=== PATIENT | female | born 1980 | race Caucasian/White ===

== ENCOUNTER 2019-04-28 17:12 | Emergency (ER) | payer MEDICAID ==
[2019-04-28] MEDS ORDERED: Ketorolac 30 MG/ML SDV IVPUSH ONE (17:35)
--- NOTE | 2019-04-28 17:41 | EDM.PDOC ---
ED HPI GENERAL MEDICAL PROBLEM - General Chief Complaint: Abdominal Pain Stated Complaint: ABDOMINAL PAIN Time Seen by Provider: 04/28/19 17:30 Source of Information: Reports: Patient History Limitations: Reports: No Limitations - History of Present Illness INITIAL COMMENTS - FREE TEXT/NARRATIVE: This patient presents to the ED for evaluation of abdominal pain. She states that her "bowel is closed off" and that is what is causing her pain. She states the pain started 3 months ago and is nearly everyday and worse after eating. She states she has to use a basketball or a child to push on her abdomen to pass stool and then the stool "is black diarrhea." She was seen in the clinic last week for the same concern and had lab work done that revealed a mild elevation in her WBC without a left shift. She was started on Cipro for "an infection" but the patient does not know what kind of infection. She was also started on Protonix after that visit. She states she has been vomiting today and has had more than 5 episodes, the last 90" [employer]. Her last urine output was this morning at about 10:30 am. She has not had a fever. She has been eating and drinking despite the abdominal pain until today when she has not had any solid foods but has been drinking fluids. She has a history of HTN, chronic pain , and asthma. She states that she had a "twisted bowel" with each and had a bowel surgery when she had her last . She is unable to say specifically what she had or what type of procedure was done. Onset: Other (more than 2 weeks) - Related Data Allergies Allergy/AdvReac Type Severity Reaction Status Date / Time cephalexin [From Keflex] Allergy Nausea and Verified 04/28/19 17:22 Vomiting erythromycin base Allergy Cannot Verified 04/28/19 17:22 Remember fluconazole [From Diflucan] Allergy Difficulty Verified 04/28/19 17:22 Breathing hydrocodone Allergy Itching Verified 04/28/19 17:22 quaternium Allergy Other Verified 04/28/19 17:22 Home Meds: Home Meds Acetaminophen [Tylenol Extra Strength] 1,000 mg PO TID PRN 05/27/18 [History] Albuterol [Ventolin HFA] 1 - 2 puff INH Q4HR PRN 05/27/18 [History] Clindamycin HCl 3 cap PO TID 05/27/18 [History] Diclofenac Sodium [Voltaren] 50 mg PO TID 05/27/18 [History] Gabapentin [Neurontin] 600 mg PO BID 05/27/18 [History] Ibuprofen 800 mg PO TID PRN 05/27/18 [History] buPROPion HCl [Wellbutrin Xl] 150 mg PO DAILY 05/27/18 [History] ED ROS GENERAL - Review of Systems Review Of Systems: See Below ED EXAM, GI/ABD - Physical Exam Exam: See Below Course - Vital Signs Last Recorded V/S: Last Vital Signs Temp 36.4 C 04/28/19 17:17 Pulse 98 04/28/19 17:17 Resp 18 04/28/19 17:17 BP 1498/80 H 04/28/19 17:17 Pulse Ox - Orders/Labs/Meds Orders: Active Orders 24 hr Category Date Time Status Abdomen Pelvis w Cont [CT] Stat Exams 04/28/19 17:35 Taken Sodium Chloride 0.9% [Normal Saline] 1,000 ml Med 04/28/19 17:45 Active IV ASDIRECTED Medication Orders Sodium Chloride (Normal Saline) 1,000 mls @ 1,000 mls/hr IV ASDIRECTED DONALD Last Admin: 04/28/19 18:33 Dose: 1,000 mls/hr Labs: Laboratory Tests 04/28/19 04/28/19 04/28/19 Range/Units 17:46 17:46 17:46 WBC (4.0-11.0) K/uL RBC (3.80-5.80) M/uL Hgb (11.5-16.5) g/dL Hct (37.0-47.0) % MCV (76-96) fL MCH (27.0-32.0) pg MCHC (31.0-35.0) g/dL RDW (11.0-16.0) % Plt Count (150-500) K/uL MPV (6.0-10.0) fL Neut % (Auto) (45.0-70.0) % Lymph % (Auto) (20.0-40.0) % [place] % (Auto) (3.0-10.0) % Eos % (Auto) (1.0-5.0) % Baso % (Auto) (0.0-0.5) % Neut # (Auto) (2.00-7.50) K/uL Lymph # (Auto) (1.50-4.00) K/uL [place] # (Auto) (0.20-0.80) K/uL Eos # (Auto) (0.04-0.40) K/uL Baso # (Auto) (0.02-0.10) K/uL Sodium 140 (136-145) mmol/L Potassium 4.7 D (3.5-5.1) mmol/L Chloride 101 (98-107) mmol/L Carbon Dioxide 25.6 (21.0-32.0) mmol/L Anion Gap 18.1 H (5.0-15.0) mmol/L BUN 27 H (8-26) mg/dL Creatinine 1.12 H (0.55-1.02) mg/dL Est Cr Clr Drug Dosing 66.88 mL/min Estimated GFR (MDRD) 55 L (>60) MLS/MIN BUN/Creatinine Ratio 24.1 (6-25) Glucose 89 (74-100) mg/dL Calcium 9.7 (8.5-10.1) mg/dL Urine Color Yellow Urine Appearance Clear (CLEAR) Urine pH 5.5 (5.0-8.0) Ur Specific [place] >= 1.030 (1.003-1.030) Urine Protein Trace H (NEGATIVE) mg/dL Urine Glucose (UA) Negative (NEGATIVE) mg/dL Urine Ketones Trace H (NEGATIVE) mg/dL Urine Occult Blood Negative (NEGATIVE) Urine Nitrite Negative (NEGATIVE) Urine Bilirubin Small H (NEGATIVE) Urine Urobilinogen 0.2 (0.2-1.0) E.U./dL Ur Leukocyte Esterase Negative (NEGATIVE) Urine RBC Not seen /HPF Urine WBC 0-5 H /HPF Ur Squamous Epith Cells Moderate /HPF Urine Bacteria Not seen /HPF Urine HCG, Qual Negative (NEGATIVE) 04/28/19 Range/Units 17:50 WBC 10.7 (4.0-11.0) K/uL RBC 5.27 (3.80-5.80) M/uL Hgb 15.3 (11.5-16.5) g/dL Hct 45.6 (37.0-47.0) % MCV 87 (76-96) fL MCH 29.0 (27.0-32.0) pg MCHC 33.6 (31.0-35.0) g/dL RDW 14.9 (11.0-16.0) % Plt Count 287 (150-500) K/uL MPV 12.2 H (6.0-10.0) fL Neut % (Auto) 64.9 (45.0-70.0) % Lymph % (Auto) 22.8 (20.0-40.0) % [place] % (Auto) 9.7 (3.0-10.0) % Eos % (Auto) 2.4 (1.0-5.0) % Baso % (Auto) 0.2 (0.0-0.5) % Neut # (Auto) 6.94 (2.00-7.50) K/uL Lymph # (Auto) 2.44 (1.50-4.00) K/uL [place] # (Auto) 1.04 H (0.20-0.80) K/uL Eos # (Auto) 0.26 (0.04-0.40) K/uL Baso # (Auto) 0.02 (0.02-0.10) K/uL Sodium (136-145) mmol/L Potassium (3.5-5.1) mmol/L Chloride (98-107) mmol/L Carbon Dioxide (21.0-32.0) mmol/L Anion Gap (5.0-15.0) mmol/L BUN (8-26) mg/dL Creatinine (0.55-1.02) mg/dL Est Cr Clr Drug Dosing mL/min Estimated GFR (MDRD) (>60) MLS/MIN BUN/Creatinine Ratio (6-25) Glucose (74-100) mg/dL Calcium (8.5-10.1) mg/dL Urine Color Urine Appearance (CLEAR) Urine pH (5.0-8.0) Ur Specific [place] (1.003-1.030) Urine Protein (NEGATIVE) mg/dL Urine Glucose (UA) (NEGATIVE) mg/dL Urine Ketones (NEGATIVE) mg/dL Urine Occult Blood (NEGATIVE) Urine Nitrite (NEGATIVE) Urine Bilirubin (NEGATIVE) Urine Urobilinogen (0.2-1.0) E.U./dL Ur Leukocyte Esterase (NEGATIVE) Urine RBC /HPF Urine WBC /HPF Ur Squamous Epith Cells /HPF Urine Bacteria /HPF Urine HCG, Qual (NEGATIVE) Meds: Medications Generic Name Dose Route Start Last Admin Trade Name Freq PRN Reason Stop Dose Admin Sodium Chloride 1,000 mls @ 1,000 mls/hr 04/28/19 17:45 04/28/19 18:33 Normal Saline IV 1,000 mls/hr ASDIRECTED DONALD Administration Discontinued Medications Generic Name Dose Route Start Last Admin Trade Name Freq PRN Reason Stop Dose Admin Ketorolac Tromethamine 30 mg 04/28/19 17:35 04/28/19 18:02 Toradol IVPUSH 04/28/19 17:36 30 mg Q6H ONE Administration - Re-Assessments/Exams Free Text/Narrative Re-Assessment/Exam: 04/28/19 19:30 This patient presents with abdominal pain as detailed above. A broad differential diagnosis was considered including appendicitis, gall bladder disease, pancreatitis, diverticular disease, bowel obstruction, volvulus, intussusception, gastritis and peptic ulcer disease, gastro intestinal infection , inflammatory bowel disease, peritonitis, kidney stones, UTI, related complications, PID and ovarian cyst, mesenteric lymphadenopathy, IBS. CT scan reveals mild periampullary duodenitis. Given her recent initiation of Protonix, no further medications are required at this time. Cardiac etiologies unlikely as supported by lack of chest pain, hemodynamic instability, or other cardiovascular concerns. At this time there is no indication for admission for serial exams and further workup. Patient remained hemodynamically stable in the ED. Plan is discharge to home and to continue Prontonix as well as her previously prescribed medications. Given her chronic use of opiods, no further opioid medications were prescribed. She should be seen in the clinic in 4-5 days if she is not better. She should return to the ED if she develops a fever greater than 102, increasing pain, other new symptoms develop. Abdominal pain instructions given to patient. Questions were answered. The patient was stable at the time of discharge. Departure - Departure Time of Disposition: 19:15 Disposition: Home, Self-Care 01 Condition: Good Clinical Impression: Duodenitis - Discharge Information Instructions: Peptic Ulcer, [id number] Referrals: PCP,None [Primary Care Provider] - Forms: ED Department Discharge, ED Return to Work/School Form Additional Instructions: Continue to take Protonix as ordered. Follow up in clinic or ER if not improved by middle of the week. - My Orders Last 24 Hours: My Active Orders 04/28/19 17:35 Abdomen Pelvis w Cont [CT] Stat 04/28/19 17:45 Sodium Chloride 0.9% [Normal Saline] 1,000 ml IV ASDIRECTED - Assessment/Plan Last 24 Hours: My Active Orders 04/28/19 17:35 Abdomen Pelvis w Cont [CT] Stat 04/28/19 17:45 Sodium Chloride 0.9% [Normal Saline] 1,000 ml IV ASDIRECTED
[2019-04-28] MEDS ORDERED: Sodium Chloride 0.9% 1,000 ML IV SCH (17:45)
--- NOTE | 2019-04-29 11:43 | CT ---
Date of Service: 04/28/19 Clinical Data: abdominal pain UNENHANCED ABDOMEN AND PELVIC CT: Multislice axial acquisition with IV, but without oral contrast was performed. No priors. The lung bases are clear. The liver is normal size. There is mild decreased attenuation of the liver adjacent to the falciform ligament consistent with focal fatty infiltration. No other focal hepatic lesions. The gallbladder appears normal. No biliary duct dilatation . The spleen appears normal. The pancreas is normal size. There is subtle fat stranding adjacent to the head of the pancreas, as well as adjacent to the duodenum. Duodenitis, pancreatitis should be considered. No evidence of abscess. The pancreas is otherwise unremarkable. The right and left adrenals appear normal. The right and left kidneys appear normal and enhance symmetrically. No hydronephrosis or hydroureter. The bladder is decompressed. No gross abnormalities. There are low density lesions in both ovaries consistent with bilateral ovarian cysts. The largest is within the right ovary and measures 4.3 cm in diameter. Followup ultrasound in 4 to 6 weeks is recommended to confirm resolution. The appendix is not dilated. No evidence of appendicitis. There is mild fat stranding of the mesentery in the region of the root of the mesentery. An infectious or inflammatory process should be considered. No free air. No free fluid. No dilated loops of bowel. No adenopathy. No aortic aneurysm or dissection. No other significant findings. [id number] [facility] [place] [facility]
== END 2019-04-28 19:17 | disposition home or self-care (01) ==
LOC: LB.ED 17:12
DX: K29.80 Duodenitis without bleeding (principal); Z88.1 Allergy status to other antibiotic agents; Z88.8 Allergy status to other drugs, medicaments and biological substances; Z79.899 Other long term (current) drug therapy; Z88.5 Allergy status to narcotic agent
CPT/HCPCS: 36415; 74177; 80048; 81001; 81025; 85025; 96361; 96374; 99284; J1885; J7030

== ENCOUNTER 2019-12-16 06:25 | Emergency (ER) | payer MEDICAID ==
[2019-12-16] MEDS ORDERED: EPINEPHrine 1 MG/ML SDV IM ONE (06:38)
[2019-12-16] MEDS ORDERED: diphenhydrAMINE 50 MG/ML SDV IVPUSH ONE (06:39)
[2019-12-16] MEDS ORDERED: methylPREDNISolone Sodium Succinate 125 MG/2 ML SDV IVPUSH ONE (06:39)
--- NOTE | 2019-12-16 07:11 | EDM.PDOC ---
ED HPI GENERAL MEDICAL PROBLEM - General Chief Complaint: Allergic Reaction Stated Complaint: ALLERGY REACTION Time Seen by Provider: 12/16/19 06:40 Source of Information: Reports: Patient History Limitations: Reports: No Limitations - History of Present Illness INITIAL COMMENTS - FREE TEXT/NARRATIVE: This patient presents to the ED for evaluation of hives. She states she started noticing the on 12/12 when she was at work. They started on her arms and have spread over the past 3 days and now include all skin surfaces. This morning she went to work and started feeling dizzy and having some trouble breathing. She also felt as though her tongue was swollen and decided to come in. she states she had one other allergic reaction when she was "working at the [employer]" but has not had one since then. 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 The grocery store has apparently started using a new product in this process and she believes this may have been what she had the reaction to. She does have a history of asthma. She has some lesions on her arms that she stated were hives that she scratched and now have a scabbed appearance. She states she cleaned them with alcohol and has been using an antifungal cream on them. She denies any recent illness including fever, cough, sore throat. 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) (zyrtec and janeth over the weekend "didn't help") Right Upper Arm Pain Score (Numeric/FACES): 5 - Related Data Allergies Allergy/AdvReac Type Severity Reaction Status Date / Time cephalexin [From Keflex] Allergy Nausea and Verified 04/28/19 17:22 Vomiting erythromycin base Allergy Cannot Verified 04/28/19 17:22 Remember fluconazole [From Diflucan] Allergy Difficulty Verified 04/28/19 17:22 Breathing hydrocodone Allergy Itching Verified 04/28/19 17:22 quaternium Allergy Other Verified 04/28/19 17:22 Home Meds: Home Meds Acetaminophen [Tylenol Extra Strength] 1,000 mg PO TID PRN 05/27/18 [History] Albuterol [Ventolin HFA] 1 - 2 puff INH Q4HR PRN 05/27/18 [History] Gabapentin [Neurontin] 600 mg PO BID 05/27/18 [History] Ibuprofen 800 mg PO TID PRN 05/27/18 [History] buPROPion HCL [Wellbutrin Xl] 150 mg PO DAILY 05/27/18 [History] ED ROS ALLERGIC REACTION - Review of Systems Review Of Systems: Comprehensive ROS is negative, except as noted in HPI. ED EXAM GENERAL NO PERIP PULSE - Physical Exam Exam: See Below Exam Limited By: No Limitations General Appearance: Alert, WD/WN, No Apparent Distress, Obese Eye Exam: Bilateral Eye: PERRL Ears: Normal External Exam Nose: Normal Inspection, Normal Mucosa Throat/Mouth: Normal Inspection, Dysphagia, Inflammation, Other (tongue mildly swollen, lips swollen) Respiratory/Chest: No Respiratory Distress, Lungs Clear, Normal Breath Sounds, No Accessory Muscle Use. No: Wheezing Cardiovascular: Regular Rate, Rhythm Extremities: Normal Inspection, Pedal Edema (non-pitting) Neurological: Alert, Oriented Psychiatric: Normal Affect Skin Exam: Warm, Dry, Intact, Rash (erythematous wheal and flare lesions on all skin surfaces except palms and face), Other Course - Vital Signs Last Recorded V/S: Last Vital Signs Temp 36.7 C 12/16/19 06:45 Pulse 70 12/16/19 07:12 Resp 20 12/16/19 06:45 BP 145/91 H 12/16/19 07:12 Pulse Ox 100 12/16/19 06:45 - Orders/Labs/Meds Meds: Medications Discontinued Medications Generic Name Dose Route Start Last Admin Trade Name Freq PRN Reason Stop Dose Admin Diphenhydramine HCl 50 mg 12/16/19 06:39 12/16/19 06:47 Benadryl IVPUSH 12/16/19 06:40 50 mg ONETIME ONE Administration Epinephrine HCl 0.3 mg 12/16/19 06:38 12/16/19 06:35 Adrenalin IM 12/16/19 06:39 0.3 mg ONETIME ONE Administration Methylprednisolone Sodium Succinate 125 mg 12/16/19 06:39 12/16/19 06:47 Solu-Medrol IVPUSH 12/16/19 06:40 125 mg ONETIME ONE Administration - Re-Assessments/Exams Free Text/Narrative Re-Assessment/Exam: 12/16/19 07:49 This patient presents for evaluation of an allergic reaction. Signs and symptoms are consistent with anaphylaxis. They look well at discharge and symptoms have stabilized and improved. We did watch here for 90 minutes prior to considering discharge; given the onset of her symptoms was 3 days prior and she has responded so well I did not feel as though continued observation was necessary. Patient was treated here with medications as noted above. Will send home with epipen, steroids, antihistamines, and topical hydorcortisone for itching. Return of anaphylactic symptoms were discussed with patient and they were instructed to inject epi-pen and call 911 should these symptoms occur. Given the rapidity of resolution, lack of serious systemic symptoms, lack of respiratory difficulty and no oral or pharyngeal swelling, would not admit at this time for anaphylaxis. There is no signs of anaphylactic shock. Departure - Departure Time of Disposition: 07:55 Disposition: Home, Self-Care 01 Condition: Good Clinical Impression: Anaphylactic reaction - Discharge Information Instructions: Hives, Epinephrine Injection Referrals: PCP,None [Primary Care Provider] - Forms: ED Department Discharge Additional Instructions: Discharge home. Fill prescriptions. Carry EPI pen with you at all times. If you start to have an allergic reaction-facial, tongue and throat swelling, use it and return to the ER immediately. Prednisone 20mg 2 tablets by mouth 2 times a day for 3 days. EPI pen 0.3mg pen as needed for allergic reaction. 2.5% hydrocortisone cream apply to skin as needed for itching 2 times a day. Hydroxyzine 25mg take 1-2 tablets by mouth every 6 hours as needed for itching. Stay home from work today and tomorrow. Sepsis Event Note - Evaluation Sepsis Screening Result: No Definite Risk - Focused Exam Vital Signs: Vital Signs Temp Pulse Resp BP Pulse Ox 12/16/19 07:12 70 145/91 H 12/16/19 06:45 36.7 C 81 20 175/116 H 100 12/16/19 06:40 36.7 C 81 18 175/116 H 100 Date Exam was Performed: 12/16/19 Time Exam was Performed: 07:49
== END 2019-12-16 07:55 | disposition home or self-care (01) ==
LOC: LB.ED 06:25
DX: T78.2XXA Anaphylactic shock, unspecified, initial encounter (principal); J45.909 Unspecified asthma, uncomplicated; Z88.1 Allergy status to other antibiotic agents; Z88.5 Allergy status to narcotic agent; Z88.8 Allergy status to other drugs, medicaments and biological substances; Z79.899 Other long term (current) drug therapy
CPT/HCPCS: 96372; 96374; 96375; 99284; 99284-25; J0171; J1200; J2930

== ENCOUNTER 2020-01-29 13:47 | Emergency (ER) | payer MEDICAID ==
[2020-01-29] MEDS: Albuterol/Ipratropium 3.0-0.5 MG/3 ML Neb Soln NEB ONE (15:05)
[2020-01-29] MEDS: Budesonide 0.5 MG/2 ML Neb Susp NEB ONE (15:06)
[2020-01-29] MEDS: Albuterol/Ipratropium 3.0-0.5 MG/3 ML Neb Soln ONE (15:11)
[2020-01-29] MEDS: Budesonide 0.5 MG/2 ML Neb Susp ONE (15:11)
--- NOTE | 2020-01-30 00:26 | ER ---
HPI: A 39-year-old lady who comes to the emergency room with complaints of fever, shortness of breath, and not feeling well since Monday. She is concerned that she may have COVID. Further questioning reveals that she has been vomiting up bright red blood approximately 8 times from Monday through Monday. She has not vomited up any blood in the last 24 hours. She does not feel like she has been running a fever. She does have a puncture wound on the inner aspect of the right heel that is painful. She would like to have this looked at and she tells me that her asthma is not very well controlled. She has albuterol at home that she uses in both the puffer form and nebulizer form, but she thinks the medicine is old. The patient also has multiple lesions on her arms that she tells me is from an allergic reaction. She recently had when exposed to chickens. The patient tells me that she does take omeprazole 20 mg a day. OBJECTIVE: GENERAL APPEARANCE: The patient is awake and alert. Morbidly obese. She is in no respiratory distress at rest. A COVID test was done initially with negative results. VITAL SIGNS: Reviewed. She is afebrile, pulse 97, blood pressure 130/72, O2 sats 96%, respirations 18. HEENT: Ears, TMs are dull. Nares are patent. Oral mucous membranes moist. Tonsils not enlarged or injected. Pharynx not inflamed. NECK: Supple. LUNGS: Reveals reduced air exchange throughout the lung carmona and mild inspiratory and expiratory wheezing. CARDIAC: Heart sounds distinct without murmurs. SKIN: Examining the patient's arms reveals several circular lesions that are all about the same size, about 2-4 mm in diameter. They are scattered randomly along both forearms and upper arms. There are no blisters, pustules, or scabs noted. Examining the patient's right foot reveals a small puncture wound on the medial aspect of the heel, which is inflamed. There is no active drainage. The redness radiates out about 2-3 cm in all directions. ABDOMEN: Soft, nontender upon palpation. Bowel sounds are present. INITIAL TREATMENT: A DuoNeb was given followed by a Pulmicort nebulizer treatment. The patient states this helped her breathing significantly. LABS: Today include a CBC with a white count slightly elevated at 11.5, hemoglobin is good at 13.7. PT/INR is normal and a CMP is unremarkable. DIAGNOSES: 1. Asthma with fairly poor control. 2. Puncture wound to right heel with localized infection. 3. Gastritis. 4. Allergic dermatitis. 5. Obesity TREATMENT PLAN: We will increase the patient's PPI putting her on Protonix 40 mg daily for 1 month. I advised patient to stick with a soft bland diet as well. I will give her a script for albuterol neb treatments to use regularly for a few days and then as needed and Pulmicort neb treatments as well to use for the next week b.i.d. and then p.r.n. I will put the patient on Keflex for her puncture wound to her foot and I will put her on a prednisone taper. The patient has been off work yesterday and today. I will give her a slip for this including tomorrow as well. I advised the patient to follow up with her primary care provider sometime over the next few days, sooner if her condition does not improve or gets worse. CRS/MODL /[id number] TEREZA
== END 2020-01-29 16:50 | disposition home or self-care (01) ==
LOC: LB.ED 13:47
DX: J45.909 Unspecified asthma, uncomplicated (principal); S91.331A Puncture wound without foreign body, right foot, initial encounter; L08.9 Local infection of the skin and subcutaneous tissue, unspecified; K29.50 Unspecified chronic gastritis without bleeding; K29.70 Gastritis, unspecified, without bleeding; E66.9 Obesity, unspecified; L23.9 Allergic contact dermatitis, unspecified cause; Z79.899 Other long term (current) drug therapy; W27.2XXA Contact with scissors, initial encounter
CPT/HCPCS: 36415; 80053; 85025; 85610; 94640; 99285-25; J7620-GY; U0002

== ENCOUNTER 2020-03-06 10:35 | Day surgery (SDC) | payer MEDICAID ==
[~2020-03-06 10:35] MED LIST: Sodium Chloride 0.9% 1,000 ML IV SCH
[2020-03-06] MEDS ORDERED: Albuterol/Ipratropium 3.0-0.5 MG/3 ML Neb Soln NEB ONE (12:30)
[2020-03-06] MEDS ORDERED: Albuterol/Ipratropium 3.0-0.5 MG/3 ML Neb Soln ONE ×2 (12:35→14:34)
[2020-03-06] MEDS ORDERED: Propofol 1,000 MG/100 ML SDV ONE (14:30)
--- NOTE | 2020-03-06 15:57 | OR ---
DATE OF OPERATION: 03/06/2020 SURGEON: Ej Arnett MD PREOPERATIVE DIAGNOSES: Epigastric pain and hematemesis. POSTOPERATIVE DIAGNOSES: Epigastric pain and hematemesis. PROCEDURE: EGD with biopsy. ANESTHESIA: MAC. ESTIMATED BLOOD LOSS: Minimal. COMPLICATIONS: None. INDICATION FOR THE PROCEDURE: The patient is a 40-year-old female who has had history of GERD for at least the last year, worsening over the last month. She did have an episode of hematemesis approximately a month ago and has had persistent epigastric pain as well. She has been switched to pantoprazole from omeprazole about a month ago, but still having some epigastric pain. She is here today for EGD. She has not had any previous EGDs. DESCRIPTION OF PROCEDURE: Informed consent was obtained with the patient. The patient was taken to the operating room, placed on the table in left lateral decubitus position. Monitored anesthesia care was administered. Esophagogastroscope was then advanced through the mouth, directed towards the second portion of duodenum. Duodenum appeared to be normal. Gastric antrum was normal. Cold forceps biopsy was taken for H pylori testing. Retroflexion performed, which was also otherwise unremarkable. The scope was then slowly removed. She did have a small hiatal hernia. Otherwise, distal esophagus also appeared to be normal as well. The scope was then removed completely. FINDINGS: Small hiatal hernia and biopsy for H pylori. RECOMMENDATIONS: Continue current medications. We will follow up on H pylori biopsies. IONA/JOSIE /[id number]
== END 2020-03-06 15:20 | disposition home or self-care (01) ==
LOC: LB.SDS 10:35
PROVIDERS: ATTEND Surgery
DX: K29.50 Unspecified chronic gastritis without bleeding (principal); K21.9 Gastro-esophageal reflux disease without esophagitis; K44.9 Diaphragmatic hernia without obstruction or gangrene; J45.909 Unspecified asthma, uncomplicated; F17.200 Nicotine dependence, unspecified, uncomplicated; E66.9 Obesity, unspecified; Z88.1 Allergy status to other antibiotic agents; Z88.6 Allergy status to analgesic agent; Z91.041 Radiographic dye allergy status; Z79.899 Other long term (current) drug therapy; Z79.51 Long term (current) use of inhaled steroids; Z68.43 Body mass index [BMI] 50.0-59.9, adult
CPT/HCPCS: 43239; J2704; J7030; 88305; J7620-GY

== ENCOUNTER 2022-07-09 22:25 | Emergency (ER) | payer MEDICAID ==
[2022-07-09] MEDS: Albuterol/Ipratropium 3.0-0.5 MG/3 ML Neb Soln NEB PRN ×2 (22:30→23:30)
[2022-07-09] MEDS ORDERED: predniSONE 5 MG Tab ONE (23:00)
[2022-07-09] MEDS: Budesonide 0.5 MG/2 ML Neb Susp ONE (23:00)
[2022-07-09] MEDS ORDERED: Albuterol 8 GM Inhaler ONE (23:00)
[2022-07-09] MEDS ORDERED: Albuterol/Ipratropium 3.0-0.5 MG/3 ML Neb Soln ONE (23:40)
[2022-07-09] MEDS ORDERED: Budesonide 0.5 MG/2 ML Neb Susp NEB ONE (23:54)
[2022-07-10] MEDS: Budesonide 0.5 MG/2 ML Neb Susp ONE (08:43)
== END 2022-07-09 23:50 | disposition home or self-care (01) ==
LOC: LB.ED 22:25
DX: J45.909 Unspecified asthma, uncomplicated (principal); I10 Essential (primary) hypertension; F17.210 Nicotine dependence, cigarettes, uncomplicated; Z88.1 Allergy status to other antibiotic agents; Z88.5 Allergy status to narcotic agent
CPT/HCPCS: 94640; 99285; A9270-GY; J7512; J7620

== ENCOUNTER 2024-07-09 19:15 | Emergency (ER) | payer MEDICAID ==
[2024-07-09] MEDS: Albuterol/Ipratropium 3.0-0.5 MG/3 ML Neb Soln NEB ONE (19:40)
[2024-07-09] MEDS: Budesonide 0.5 MG/2 ML Neb Susp NEB ONE (19:50)
[2024-07-09 20:22] LABS: BASOPHILS ABSOLUTE AUTO 0.02 K/uL (0.02-0.10); BASOPHILS PERCENT AUTO 0.1 % (0.0-0.5); EOSINOPHILS ABSOLUTE AUTO 0.35 K/uL (0.04-0.40); EOSINOPHILS PERCENT AUTO 2.5 % (1.0-5.0); HEMATOCRIT 44.5 % (37.0-47.0); HEMOGLOBIN 15.1 g/dL (11.5-16.5); LYMPHOCYTES ABSOLUTE AUTO 3.06 K/uL (1.50-4.00); MEAN CORPUSCULAR HEMOGLOBIN 29.9 pg (27.0-32.0); MEAN CORPUSCULAR HGB CONC 33.9 g/dL (31.0-35.0); MEAN CORPUSCULAR VOLUME 88 fL (76-96); MONOCYTES ABSOLUTE AUTO 0.92 K/uL (0.20-0.80); MONOCYTES PERCENT AUTO 6.6 % (3.0-10.0); NEUTROPHILS ABSOLUTE AUTO 9.53 K/uL (2.00-7.50); NEUTROPHILS PERCENT AUTO 68.8 % (45.0-70.0); PLATELET COUNT,PLT 188 K/uL (150-500); RED BLOOD CELL COUNT 5.05 M/uL (3.80-5.80); RED CELL DISTRIBUTION WIDTH 13.6 % (11.0-16.0); WHITE BLOOD CELL COUNT,WBC 13.9 K/uL (4.0-11.0)
[2024-07-09 20:34] LABS: PH,VENOUS 7.35 (7.31-7.41)
[2024-07-09 20:35] LABS: BASE EXCESS VENOUS 1.5 mm/L (-2-3); PCO2 VENOUS 48.5 mm/Hg (41-51)
[2024-07-09 20:44] LABS: A/G RATIO 0.9 (0.8-2.0); ALBUMIN 3.5 g/dL (3.4-5.0); ANION GAP 12.3 mmol/L (5.0-15.0); BILIRUBIN TOTAL 0.3 mg/dL (0.0-1.0); BUN/CREATININE RATIO 9.2 (6-25); CALCIUM 9.4 mg/dL (8.5-10.1); CARBON DIOXIDE,CO2 28.6 mmol/L (21.0-32.0); CREATININE 0.87 mg/dL (0.55-1.02); EST CRCL DRUG DOSING (CG) 81.92 mL/min; POTASSIUM,K 3.9 mmol/L (3.5-5.1); PROTEIN TOTAL,TP 7.6 g/dL (6.4-8.2)
[2024-07-09] MEDS ORDERED: methylPREDNISolone 4 MG Tab 21 Tab/Dosepak ONE (20:45)
[2024-07-09] MEDS ORDERED: Albuterol/Ipratropium 3.0-0.5 MG/3 ML Neb Soln ONE (20:45)
[2024-07-09] MEDS: Albuterol/Ipratropium 3.0-0.5 MG/3 ML Neb Soln ONE (21:18)
== END 2024-07-09 20:55 | disposition home or self-care (01) ==
LOC: LB.ED 19:15
DX: J45.909 Unspecified asthma, uncomplicated (principal); I10 Essential (primary) hypertension; F17.210 Nicotine dependence, cigarettes, uncomplicated; Z79.899 Other long term (current) drug therapy; Z88.1 Allergy status to other antibiotic agents; Z88.5 Allergy status to narcotic agent; Z88.8 Allergy status to other drugs, medicaments and biological substances
CPT/HCPCS: 36415; 71045; 80053; 82803; 83880; 84484; 85025; 85379; 93005; 94640; 99285; J7509; J7620

== ENCOUNTER 2025-06-29 17:09 | Emergency (ER) | payer MEDICAID ==
[2025-06-29] MEDS: Ketorolac 30 MG/ML SDV IM ONE (18:01)
[2025-06-29] MEDS ORDERED: Acetaminophen/oxyCODONE 325-5 MG Tab ONE (19:30)
== END 2025-06-29 19:45 | disposition home or self-care (01) ==
LOC: LB.ED 17:09
DX: S83.92XA Sprain of unspecified site of left knee, initial encounter (principal); I10 Essential (primary) hypertension; J45.909 Unspecified asthma, uncomplicated; X50.1XXA Overexertion from prolonged static or awkward postures, initial encounter
CPT/HCPCS: 73552-LT; 73562-LT; 96372; 99283; A9270-GY; J1885